=== PATIENT | female | born 2000 | race African-American/Black ===

== ENCOUNTER 2021-07-23 21:45 | Emergency (ER) | payer OTHER ==
[~2021-07-23] VITALS: Ht 170.2 cm; Wt 95.3 kg
[2021-07-23] MEDS ORDERED: PROAIR HFA8.5 GM INH (23:06)
[2021-07-23] MEDS ORDERED: PEPCID20 MG PO (23:06)
[2021-07-23 23:29] VITALS: BP 156/86
--- NOTE | 2021-07-27 07:13 | EKG ---
[address] [address] [place] [address] ELECTROCARDIOGRAM REPORT Name: LEONAMY VANEGASENZIE CHELSEA Room #: DEP [facility]#: [id number] Admission: 07/23/21 Attend Phys: Discharge: 07/23/21 Date of : 89 Report #: [id number] [facility] ED Test Date: 2021-07-23 Test Time: 22:08:53 Pat Name: AMY QUINTERO Department: Room: Gender: F [employer]: marie galarza : 2000 Requested By: Javi Rae Order Number: [id number] MD: Howard Cherry Measurements Intervals [place] Rate: 95 P: 43 [place]: 157 QRS: 49 QRSD: 87 T: 39 QT: 347 QTc: 436 Interpretive Statements Sinus rhythm RSR' in V1 or V2, right VCD or RVH Baseline wander in lead(s) V1,V2 No previous ECG available for comparison Electronically Signed On 07-27-2021 7:13:26 [employer] by Howard Cherry [email or web address] <ELECTRONICALLY SIGNED> By: Howard Cherry MD, [facility] 07/27/2113 07 07 Howard Cherry MD, FACC /EPI
== END 2021-07-23 23:31 | disposition home or self-care (01) ==
LOC: ER 21:45
DX: K29.70 Gastritis, unspecified, without bleeding (principal); R07.89 Other chest pain